=== PATIENT | female | born 1995 | race Caucasian/White ===

== ENCOUNTER 2016-12-11 00:35 | Outpatient (CLI) | payer MEDICAID, OTHER ==
[~2016-12-11] VITALS: Ht 160 cm; Wt 119.5 kg
[2016-12-11 01:24] VITALS: Ht 160 cm; Wt 119.5 kg
[2016-12-11 01:25] VITALS: BP 111/62; PULSE 79; RESP 18
[2016-12-11 01:51] LABS: ADD UMIC NO; UR ASCORBIC ACID 40 mg/dL (NEGATIVE); UR BACTERIA FEW /HPF (NONE SEEN); UR BILIRUBIN (Dip) NEGATIVE (NEGATIVE); UR BLOOD (Dip) NEGATIVE (NEGATIVE); UR CLARITY SLIGHTLY CLOUDY (CLEAR); UR COLOR YELLOW (YELLOW); UR GLUCOSE (Dip) 1+ mg/dL (NEGATIVE); UR KETONES (Dip) NEGATIVE (NEGATIVE); UR LEUKOCYTE ESTERASE (Dip) NEGATIVE Leu/ul (NEGATIVE); UR MUCUS MODERATE /HPF (NONE SEEN); UR NITRITE (Dip) NEGATIVE (NEGATIVE); UR RBC 2 /HPF (0-5); UR SPECIFIC GRAVITY (Dip) 1.029 (1.003-1.030); UR SQUAMOUS EPITHELIAL CELL FEW /HPF (FEW); UR TOTAL PROTEIN (Dip) NEGATIVE (NEGATIVE); UR UROBILINOGEN (Dip) NEGATIVE (NEGATIVE)
--- NOTE | 2016-12-11 01:54 | RADRPT ---
PROCEDURE: ULTRASOUND BIOPHYSICAL PROFILE CLINICAL INDICATION: 21-year-old female with decreased movement for viability . TECHNIQUE: Multiple sonographic images were obtained in order to perform a biophysical profile The images were reviewed on a PACS workstation. COMPARISON: None. FINDINGS: There is a single viable intrauterine gestation. There is a vertex presentation. Cardiac activity i s present at 134 beats per minute. The placenta is anterior. The results of the biophysical profile are as follows: breathing movement = 2/2 Gross body movement = 2/2 tone = 2/2 Qualitative amniotic fluid volume = 2/2 Amniotic fluid index equals 10.3 cm. This yields a biophysical profile score of 8/8. IMPRESSION: Biophysical profile score is 8/8. .Rashad Rahman MD, Date Time Electronically viewed and signed by .Rashad Rahman MD, on 12/11/2016 01:54 .M/
[2016-12-11] MEDS ORDERED: PRENAT PO (02:48)
--- NOTE | 2016-12-11 08:05 | PN ---
Triage Information Date/Time Weeks of Gestation 34w : 1 Para: 0 Diabetes: none Hypertention: none Additional information DFM Objective Vital Signs Date Time Temp Pulse Resp B/P Pulse Ox O2 Delivery O2 Flow Rate FiO2 12/11/16 01:25 97.9 79 18 111/62 Room Air Heart Rate: 130's Contractions: None Results/Medications Results 24 hrs Laboratory Tests Test 12/11/16 00:45 Urine Color YELLOW Urine Clarity SLIGHTLY CLOUDY A Urine pH 6.0 Urine Specific [place] 1.029 Urine Ketones NEGATIVE Urine Nitrite NEGATIVE Urine Bilirubin NEGATIVE Urine Urobilinogen NEGATIVE Urine Leukocyte Esterase NEGATIVE Urine Microscopic RBC 2 Urine Microscopic WBC 3 Urine Squamous Epithelial Cells FEW Urine Bacteria FEW A Urine Mucus MODERATE Urine Hemoglobin NEGATIVE Urine Glucose 1+ H Urine Total Protein NEGATIVE Imaging Results BPP 88 THONG 10.3 Assessment/Plan IUP 34w DFM plan dischrge home with routine labor instructions KRISTINA OLEA MD Dec 11, 2016 08:05
== END 2016-12-11 03:04 | disposition home or self-care (01) ==
LOC: L-D 00:35 → OBT 00:35
PROVIDERS: ATTEND Obstetrics & Gynecology
DX: O36.8130 Decreased fetal movements, third trimester, not applicable or unspecified (principal); Z3A.34 34 weeks gestation of pregnancy
CPT/HCPCS: 76818; 81001; 81003; Z7500; G0463

== ENCOUNTER 2017-01-07 21:11 | Inpatient (IN) | payer OTHER ==
[~2017-01-07] VITALS: Ht 160 cm; Wt 124.9 kg
[~2017-01-07 21:11] MED LIST: PRENAT PO
[2017-01-07 22:00] VITALS: BP 108/65; PULSE 56; RESP 18
[2017-01-07] MEDS ORDERED: ACET500C5 PO (22:02)
[2017-01-07 23:08] LABS: BASOPHILS % 0.2 % (0.0-2.0); EOSINOPHILS # 0.1 10^3/ul (0.0-0.5); EOSINOPHILS % 0.8 % (0.0-7.0); HEMATOCRIT 38.1 % (37.0-47.0); HEMOGLOBIN 12.9 g/dl (12.0-16.0); LYMPHOCYTES % 10.1 % (15.0-51.0); MEAN CORPUSCULAR HEMOGLOBIN 29.1 pg (29.0-33.0); MEAN CORPUSCULAR HGB CONC 33.9 g/dl (32.0-37.0); MEAN PLATELET VOLUME 11.6 fl (7.4-10.4); MONOCYTE # 0.5 10^3/ul (0.3-0.9); MONOCYTES % 5.5 % (0.0-11.0); PLATELET COUNT 175 10^3/UL (140-415); RED BLOOD COUNT 4.43 10^6/ul (4.20-5.40); RED CELL DISTRIBUTION WIDTH 13.7 % (11.5-14.5); WHITE BLOOD COUNT 9.8 10^3/ul (4.8-10.8)
--- NOTE | 2017-01-07 23:09 | RADRPT ---
PROCEDURE: US OB biophysical profile. CLINICAL INDICATION: decreased movements TECHNIQUE: Multiple sonographic images of the pelvis were obtained. The images were reviewed on a PACS workstation. COMPARISON: 12/11/16 FINDINGS: There is a single viable intrauterine gestation. Cardiac activity is present with 158 beats per min [place]. There is a vertex presentation. The placenta is anterior. There is no evidence of placental abruption. There is a normal amount of amniotic fluid with an THONG = 9.2 cm. Biophysical profile: movement 2/2 tone 2/2. breathing 2/2 THONG 2/2 Total 12/29 RPTAT: AA . IMPRESSION: Normal biophysical profile. . .Zack Gatica MD, MD Date Time Electronically viewed and signed by .Zack Gatica MD, MD on 01/07/2017 23:09 .S/
--- NOTE | 2017-01-07 23:13 | RADRPT ---
PROCEDURE: US Abdomen. CLINICAL INDICATION: abdominal pain TECHNIQUE: Multiple real-time images were acquired of the patient's right upper quadrant abdomen a nd retroperitoneum utilizing a high resolution transducer. COMPARISON: None FINDINGS: The liver demonstrates normal echogenicity. The liver is normal in size and no focal solid lesions are seen. The liver measures 14.2 cm in length. The portal vein is patent with normal direction of f low. No intrahepatic biliary dilatation is seen. Multiple calcified gallstones are identified within the gallbladder. There is no pericholecystic f luid or gallbladder wall thickening. The common bile duct measures 6 mm in maximal dimension. The pancreas was not seen. No free fluid is identified. The right kidney is normal in size, and demonstrate normal echogenicity and cortical thickness. The right kidney measures 11.5 cm in long dimension. There is no evidence of hydronephrosis. There are no kidney stones. RPTAT: AA IMPRESSION: Cholelithiasis. Mildly dilated CBD. .Zack Gatica MD, MD Date Time Electronically viewed and signed by .Zack Gatica MD, on 01/07/2017 23:12 .S/
[2017-01-07 23:17] LABS: ADD UMIC YES; UR ASCORBIC ACID NEGATIVE (NEGATIVE); UR BILIRUBIN (Dip) 1+ mg/dL (NEGATIVE); UR BLOOD (Dip) NEGATIVE (NEGATIVE); UR CLARITY SLIGHTLY CLOUDY (CLEAR); UR COLOR AMBER (YELLOW); UR GLUCOSE (Dip) NEGATIVE (NEGATIVE); UR KETONES (Dip) NEGATIVE (NEGATIVE); UR LEUKOCYTE ESTERASE (Dip) NEGATIVE Leu/ul (NEGATIVE); UR MUCUS FEW /HPF (NONE SEEN); UR NITRITE (Dip) NEGATIVE (NEGATIVE); UR RBC 0 /HPF (0-5); UR SPECIFIC GRAVITY (Dip) 1.026 (1.003-1.030); UR SQUAMOUS EPITHELIAL CELL MODERATE /HPF (FEW); UR TOTAL PROTEIN (Dip) 1+ mg/dl (NEGATIVE); UR UROBILINOGEN (Dip) 2+ mg/dL (NEGATIVE)
[2017-01-07 23:29] LABS: ALBUMIN 3.1 g/dl (3.3-4.9); ALBUMIN/GLOBULIN RATIO 1.1; BILIRUBIN,INDIRECT 0.3 mg/dl (0-1.1); BILIRUBIN,TOTAL 0.3 mg/dl (0.2-1.3); CREATININE 0.55 mg/dl (0.44-1.00); POTASSIUM 4.2 mmol/L (3.5-5.1); TOTAL PROTEIN 5.9 g/dl (6.1-8.1); URIC ACID 4.6 mg/dl (3.1-7.9)
[2017-01-08] MEDS ORDERED: ACETAMINOPHEN 325 MG TAB PO PRN (01:00)
[2017-01-08] MEDS ORDERED: AL HYDROX/MG HYDROX/SIMETH 30 ML CUP PO PRN (01:00)
[2017-01-08] MEDS ORDERED: morphine 2 MG INJ IV ONE (01:00)
[2017-01-08] MEDS: LACTATED RINGER'S 1,000 ML IV SCH ×2 (01:14→09:26)
[2017-01-08 01:27] LABS: INR 0.89; PT RATIO 0.9
[2017-01-08 01:28] LABS: PARTIAL THROMBOPLASTIN TIME 27.5 Sec (25.0-35.0)
--- NOTE | 2017-01-08 05:36 | HP ---
Date/Time of Note Date/Time of Note DATE: 01/08/17 TIME: 05:05 OB - History Hx of Present Free Text/Dictation 21 y.o primigravida at 38w came to triage with c/o ruq pain and x2 vomiting and small amount of diarrhea for iday denies any febrile episodes known to have gall stones. pain level 6/10 all lab result wnl EFM revealed no uterine activities, reactive strip THONG 9.2 BPP 8/8 u/s abdomen showa gall stones but no evidence of wall thickening, no dilatation of common duct. aadmitted for pain control and possilble induction in am Chief Complaint: RUQ pain and vomiting Estimated Due Date: Jan 22, 2017 : 1 Para: 0 Spontaneous : 0 Therapeutic : 0 Care: Good Care Ultrasounds: Normal mid trimester US Obstetrical Complications: None Medical Complications: Gastrointestinal Past Family/Social History * Past Medical, Surgical, Family and Obstetric Histories reviewed from chart. Blood Type: Unknown Rubella: unknown RPR/VDRL: Unknown GBS Status: Unknown OB Admission Exam Vital Signs Vital Signs Vital Signs Date Time Temp Pulse Resp B/P Pulse Ox O2 Delivery O2 Flow Rate FiO2 01/07/17 22:00 98.6 56 18 108/65 Room Air Physical Exam HEENT: WNL Heart: Rhythm Normal Lungs: Clear, Equal Abdomen: Abnormal (tenderness on epigastrium and increase tenderness with deep breathing on RUQ) Extremities: Normal Reflexes: Normal Cervical Dilatation: other Station: Other Amniotic Fluid: Other Heart Rate: 140's Accelerations: Accelerations Present Decelerations: No Decelerations Varibility: Moderate Contractions on Admission: None Last 72 hours Lab Results CBC & BMP 01/07/17 22:54 Liver Function Test 01/07/17 22:54 Alanine Aminotransferase (ALT/SGPT) 45 Albumin 3.1 L Alkaline Phosphatase 176 H Aspartate Amino Transf (AST/SGOT) 44 Direct Bilirubin 0.00 Total Protein 5.9 L OB Assessment/Plan Reason for admission: other Other Assessment: IUP 38w abdominal pain 2 to cholelithiasis Plan: Induction Other plan: pain control Morphine sulfate 4mg IV IV hydration KRISTINA OLEA MD Jan 08, 2017 05:24
[2017-01-08] MEDS ORDERED: PRENATAL VITAMIN PO SCH (09:00)
[2017-01-08 09:38] LABS: ADD UMIC YES; UR ASCORBIC ACID 40 mg/dL (NEGATIVE); UR BACTERIA FEW /HPF (NONE SEEN); UR BILIRUBIN (Dip) 1+ mg/dL (NEGATIVE); UR BLOOD (Dip) NEGATIVE (NEGATIVE); UR CLARITY SLIGHTLY CLOUDY (CLEAR); UR COLOR AMBER (YELLOW); UR GLUCOSE (Dip) NEGATIVE (NEGATIVE); UR KETONES (Dip) 1+ mg/dL (NEGATIVE); UR LEUKOCYTE ESTERASE (Dip) TRACE Leu/ul (NEGATIVE); UR MUCUS FEW /HPF (NONE SEEN); UR NITRITE (Dip) NEGATIVE (NEGATIVE); UR RBC 3 /HPF (0-5); UR SPECIFIC GRAVITY (Dip) 1.029 (1.003-1.030); UR SQUAMOUS EPITHELIAL CELL FEW /HPF (FEW); UR TOTAL PROTEIN (Dip) 1+ mg/dl (NEGATIVE); UR UROBILINOGEN (Dip) 2+ mg/dL (NEGATIVE)
[2017-01-08] MEDS ORDERED: ONDANSETRON 4 MG INJ IV PRN (10:00)
[2017-01-08] MEDS ORDERED: morphine 2 MG INJ IV PRN (10:00)
--- NOTE | 2017-01-08 13:36 | PN ---
Date/Time of Note Date/Time of Note DATE: 01/08/17 TIME: 13:32 OB Subjective Subjective Subjective Afebrile Vital signs are stable No more complaining of epigastric and right upper quadrant pain From the point of obstetrics biophysical profile 8 out of 8 THONG 9.1 heart category 1 had perinatology consult no obstetrical problem plan of a.m. discharge after consult with dietitian she will be followed at the clinic as outpatient OLIVA KAYE MD Jan 08, 2017 13:35
== END 2017-01-08 18:15 | disposition home or self-care (01) | DRG 781 ==
LOC: OBT 21:11 → L-D 21:12 → OBG 01-08 00:30 → OBT 01-08 00:30
PROVIDERS: ADMIT Obstetrics & Gynecology; ATTEND Obstetrics & Gynecology
DX: O99.613 Diseases of the digestive system complicating pregnancy, third trimester (principal); Z3A.38 38 weeks gestation of pregnancy
CPT/HCPCS: 76705; 76818; 80053; 80076; 81001; 82150; 83690; 84560; 85025; 85610; 85730; 86900; 86901; 87340; 96360; G0463; J2270; J2405; J7120

== ENCOUNTER 2017-01-09 15:34 | Outpatient (CLI) | payer OTHER ==
[~2017-01-09] VITALS: Ht 160 cm; Wt 124.9 kg
[~2017-01-09 15:34] MED LIST changes: +ACET500C5 PO
--- NOTE | 2017-01-09 15:58 | PN ---
Triage Information Date/Time Reason for visit: Cholelithiasis, complaining of right upper quadrant pain scale 1-10 4to5 Weeks of Gestation 38 weeks and 1day /Para Objective Heart Rate: 130's Heart Rate Comments heart rate category 1 Contractions: None Exam Pelvic exam deferred Disposition: Discharge Assessment/Plan Patient is undergoing an NST biophysical profile if result is satisfactory she will be discharged with a prescription of Tylenol3, recommended low-fat diet, follow-up at the clinic, in case of any other problems or other issues return to the hospital, OLIVA KAYE MD Jan 09, 2017 15:54
[2017-01-09 17:16] VITALS: Ht 160 cm; Wt 124.9 kg
[2017-01-09 17:17] VITALS: BP 120/76; PULSE 71; RESP 20
--- NOTE | 2017-01-09 17:28 | RADRPT ---
PROCEDURE: US OB biophysical profile. CLINICAL INDICATION: decreased movements, pain TECHNIQUE: Multiple sonographic images of the pelvis were obtained. The images were reviewed on a PACS workstation. COMPARISON: 01/07/2017 FINDINGS: There is a single viable intrauterine gestation. Cardiac activity is present with 165 beats per min gallo. There is a vertex presentation. The placenta is anterior. There is no evidence of placental abruption. There is a normal amount of amniotic fluid with an THONG = 10.0 cm. Biophysical profile: movement 2/2 tone 2/2. breathing 2/2 THONG 2/2 Total 12/29 RPTAT: AA . IMPRESSION: Normal biophysical profile. . .Zack Gatica MD, MD Date Time Electronically viewed and signed by .Zack Gatica MD, on 01/09/2017 17:27 .S/
--- NOTE | 2017-01-09 17:31 | RADRPT ---
PROCEDURE: US OB. CLINICAL INDICATION: Size and dates , pain TECHNIQUE: Multiple sonographic images of the pelvis and gravid uterus were obtained. The images were reviewed on a PACS workstation. COMPARISON: 01/07/2017 FINDINGS: There is a single viable intrauterine gestation. Cardiac activity is present with 138 beats per min [place]. There is a vertex presentation. The placenta is anterior. There is no evidence of placental abruption. There is a normal amount of amniotic fluid with an THONG = 10.0 cm. Measurements were made in order to determine age. The results are as follows: BPD =8.6 cm HC =33.4 cm AC =34.3 cm FL =7.4 cm Estimated gestational age of approximately 38 weeks and 1 day based on ultrasound measurements. Clinical age: 38 weeks and 1 day. The estimated date of delivery is 01/22/17, based on ultrasound measurements. The EFW = 3281 g, 51.5%, based on LMP age. RPTAT: AA IMPRESSION: Single viable intrauterine gestation of approximately 38 weeks and 1 day based on ultrasound measur ements. .Zack Gatica MD, MD Date Time Electronically viewed and signed by .Zack Gatica MD, MD on 01/09/2017 17:31 .S/
== END 2017-01-09 17:35 | disposition home or self-care (01) ==
LOC: OBT 15:34 → L-D 15:36 → OBT 17:35
PROVIDERS: ATTEND Obstetrics & Gynecology
DX: O99.613 Diseases of the digestive system complicating pregnancy, third trimester (principal); K80.20 Calculus of gallbladder without cholecystitis without obstruction; Z3A.38 38 weeks gestation of pregnancy
CPT/HCPCS: 76815; 76818; Z7500; G0463

== ENCOUNTER 2017-01-16 22:45 | Inpatient (IN) | payer OTHER ==
[~2017-01-16] VITALS: Ht 160 cm; Wt 125.8 kg
[2017-01-16 23:16] VITALS: BP 129/83; PULSE 71; RESP 18
[2017-01-16 23:17] VITALS: Ht 160 cm; Wt 125.8 kg
--- NOTE | 2017-01-17 00:09 | RADRPT ---
PROCEDURE: US biophysical profile. CLINICAL INDICATION: Decreased movement TECHNIQUE: Multiple sonographic images of the pelvis were obtained. The images were reviewed on a PACS workstation. COMPARISON: No prior studies are available for comparison. FINDINGS: There is a single viable intrauterine gestation, with heart rate measuring 144 beats per minut e. There is an anterior placenta, grade II to III. There is decreased amniotic fluid, with amniotic fluid index measured at 3.5 cm. Results of the biophysical profile are as follows breathing movement = 2/2 Gross body movement = 2/2 tone = 2/2 Quantitative amniotic fluid volume = 0/2. This yields a biophysical profile score of 6/8. IMPRESSION: Single viable intrauterine gestation, with biophysical profile of 6/8. Oligohydramnios, amniotic flu id index equals 3.5 cm RPTAT: HBST .Quoc King MD, Date Time Electronically viewed and signed by .Quoc King MD, on 01/17/2017 00:09 .T/
--- NOTE | 2017-01-17 00:20 | HP ---
Date/Time of Note Date/Time of Note DATE: 01/17/17 TIME: 00:13 OB - History Hx of Present Free Text/Dictation Patient is 1 para 0 at 39 weeks and 1 day gestation She is complaining of decreased movement THONG 3.5 Chief Complaint: Decreased movement Estimated Due Date: Jan 22, 2017 : 1 Para: 0 Care: Good Care Abnormal Ultrasound Findings: PROCEDURE: US biophysical profile. CLINICAL INDICATION: Decreased movement TECHNIQUE: Multiple sonographic images of the pelvis were obtained. The images were reviewed on a PACS workstation. COMPARISON: No prior studies are available for comparison. FINDINGS: There is a single viable intrauterine gestation, with heart rate measuring 144 beats per minute. There is an anterior placenta, grade II to III. There is decreased amniotic fluid, with amniotic fluid index measured at 3.5 cm. Results of the biophysical profile are as follows breathing movement = 2/2 Gross body movement = 2/2 tone = 2/2 Quantitative amniotic fluid volume = 0/2. This yields a biophysical profile score of 6/8. IMPRESSION: Single viable intrauterine gestation, with biophysical profile of 6/8. Oligohydramnios, amniotic fluid index equals 3.5 cm RPTAT: HBST .Quoc King MD, Date Time Electronically viewed and signed by .Quoc King MD, MD on 01/17/2017 00:09 .T/ CC: MERARY JOHNSON MD Past Family/Social History * Past Medical, Surgical, Family and Obstetric Histories reviewed from chart. OB Admission Exam Vital Signs Vital Signs Vital Signs Date Time Temp Pulse Resp B/P Pulse Ox O2 Delivery O2 Flow Rate FiO2 01/16/17 23:16 98.1 71 18 129/83 Room Air Physical Exam HEENT: WNL Heart Rate: 140's OB Assessment/Plan Other Assessment: 1 para 0 at 39 weeks and 1 day of gestation with low THONG 3.5 Plan: Induction Induction Method: per Misoprostol Protocol Other plan: Admit to labor and delivery for induction of labor PIH labs Pain meds as needed MERARY JOHNSON MD Jan 17, 2017 00:20
[2017-01-17] MEDS ORDERED: OXYTOCIN 30 UNITS/LR 500 ML IV SCH (00:30)
[2017-01-17] MEDS ORDERED: METHYLERGONOVINE 0.2 MG INJ IM PRN (00:30)
[2017-01-17] MEDS ORDERED: BUTORPHANOL 2 MG INJ IV PRN (00:30)
[2017-01-17] MEDS ORDERED: MISOPROSTOL 200 MCG TAB PR PRN (00:30)
[2017-01-17] MEDS ORDERED: LACTATED RINGER'S 1,000 ML IV PRN (00:30)
[2017-01-17] MEDS ORDERED: OXYTOCIN 30 UNITS/LR 500 ML IV PRN (00:30)
[2017-01-17] MEDS ORDERED: LIDOCAINE 1% (MPF) 30 ML INJ INJ PRN (00:30)
[2017-01-17] MEDS ORDERED: AMPICILLIN 2 GM/NS (PMX) 100 ML IV ONE (00:30)
[2017-01-17] MEDS ORDERED: CARBOPROST 250 MCG INJ IM PRN (00:30)
[2017-01-17] MEDS ORDERED: IBUPROFEN 600 MG TAB PO PRN (00:30)
[2017-01-17 02:05] LABS: ADD UMIC YES; UR ASCORBIC ACID 20 mg/dL (NEGATIVE); UR BACTERIA FEW /HPF (NONE SEEN); UR BILIRUBIN (Dip) NEGATIVE (NEGATIVE); UR BLOOD (Dip) NEGATIVE (NEGATIVE); UR CLARITY CLOUDY (CLEAR); UR COLOR AMBER (YELLOW); UR GLUCOSE (Dip) NEGATIVE (NEGATIVE); UR KETONES (Dip) NEGATIVE (NEGATIVE); UR LEUKOCYTE ESTERASE (Dip) 2+ Leu/ul (NEGATIVE); UR MUCUS FEW /HPF (NONE SEEN); UR NITRITE (Dip) NEGATIVE (NEGATIVE); UR RBC 2 /HPF (0-5); UR SPECIFIC GRAVITY (Dip) 1.026 (1.003-1.030); UR SQUAMOUS EPITHELIAL CELL MANY /HPF (FEW); UR TOTAL PROTEIN (Dip) 1+ mg/dl (NEGATIVE); UR UROBILINOGEN (Dip) 1+ mg/dL (NEGATIVE)
[2017-01-17] MEDS: LACTATED RINGER'S 1,000 ML IV SCH ×5 (02:40→23:05)
[2017-01-17 03:08] LABS: BASOPHILS % 0.3 % (0.0-2.0); EOSINOPHILS # 0.1 10^3/ul (0.0-0.5); EOSINOPHILS % 1.1 % (0.0-7.0); HEMOGLOBIN 13.1 g/dl (12.0-16.0); LYMPHOCYTES # 1.9 10^3/ul (0.8-2.9); MEAN CORPUSCULAR HGB CONC 33.6 g/dl (32.0-37.0); MEAN CORPUSCULAR VOLUME 86.5 fl (82.0-101.0); MONOCYTE # 0.7 10^3/ul (0.3-0.9); MONOCYTES % 6.5 % (0.0-11.0); NEUTROPHILS % 72.9 % (39.0-77.0); PLATELET COUNT 138 10^3/UL (140-415); RED BLOOD COUNT 4.51 10^6/ul (4.20-5.40); RED CELL DISTRIBUTION WIDTH 13.7 % (11.5-14.5); WHITE BLOOD COUNT 10.2 10^3/ul (4.8-10.8)
[2017-01-17 03:27] LABS: URIC ACID 4.2 mg/dl (3.1-7.9)
[2017-01-17 03:30] LABS: ALBUMIN 3.2 g/dl (3.3-4.9); ALBUMIN/GLOBULIN RATIO 1.06; BILIRUBIN,INDIRECT 0.1 mg/dl (0-1.1); BILIRUBIN,TOTAL 0.1 mg/dl (0.2-1.3); CALCIUM 8.9 mg/dl (8.4-10.2); CREATININE 0.59 mg/dl (0.44-1.00); POTASSIUM 4.2 mmol/L (3.5-5.1); TOTAL PROTEIN 6.2 g/dl (6.1-8.1)
[2017-01-17 03:41] LABS: INR 0.89; PARTIAL THROMBOPLASTIN TIME 28.1 Sec (25.0-35.0); PT RATIO 0.9
[2017-01-17] MEDS ORDERED: AMPICILLIN 1 GM/NS (PMX) 50 ML IV SCH (04:30)
[2017-01-17] MEDS ORDERED: ONDANSETRON 4 MG INJ IV PRN (06:30)
[2017-01-17] MEDS: MISOPROSTOL 25 MCG CAPSULE PO SCH ×5 (06:33→20:15)
--- NOTE | 2017-01-17 07:59 | TRIAGE ---
OB Triage Datetime Report Generated by CPN: 01/17/2017 07:58 Datetime: 01/17/2017 07:24 Assessment Type: Admission Assessment Vaginal Bleeding: None Maternal Assessment Level of Consciousness: Fully Conscious DTR's/Clonus: DTRs 2+; No Clonus Headache: Denies Blurred Vision: No Respiratory Effort: Unlabored; Regular Rhythm; Equal Expansion Breath Sounds, Left: Clear and Equal Breath Sounds, Right: Clear and Equal Nausea/Vomiting: Denies RUQ Epigastric Pain: Denies Lower Extremities Edema: None Degree: None Upper Extremities Edema: None Degree: None Facial Edema: None Fall Risk Assessment History of Falling: (0) No Secondary Diagnosis: (0) No Ambulatory Aid: (0) Bedrest/Nurse Assist IV Therapy: (0) No Gait: (0) Normal/Bedrest/Immobile Mental Status: (0) Oriented to Own Ability Fall Score: 0 Fall Risk Score Definition: No Risk: No action required Labor Evaluation Frequency: NONE Duration (sec)2399: Resting Tone [place]: Relaxed Contraction Comments: PT DENIES FEELING UC'S AT THIS TIME Heart Rate FHR Baseline Rate: 120 Variability: Moderate 6-25 bpm Accelerations: 15X15 Decelerations: None Category: Category I Pain Assessment Pain Scale: 0 Pain Presence: None/Denies Pain Type: N/A Pain Goal: 3 Pain Assessment Comments: Membrane Status: Intact Datetime: 01/17/2017 06:35 Stage of : Labor Labor Evaluation Frequency: irregular Monitor Mode: External Quality: Mild Pattern: Normal: <= 5 Contractions in 10 Minutes Resting Tone [place]: Relaxed Heart Rate FHR Baseline Rate: 145 FHR Baseline Changes: No Baseline Change Variability: Moderate 6-25 bpm Accelerations: 15X15 Decelerations: None Category: Category I Pain Presence: Intermittent Pain Type: Cramping Pain Location: Abdomen; Back Pain Goal: 2 Pain Relief Measures: Pain Medication Given; Epidural Given; [employer] Use; Comfort Measures Datetime: 01/17/2017 05:30 Labor Evaluation Frequency: IRREG Monitor Mode: External Quality: Mild Pattern: Normal: <= 5 Contractions in 10 Minutes Resting Tone [place]: Relaxed Heart Rate FHR Baseline Rate: 125 Monitor Mode: External US Variability: Moderate 6-25 bpm Accelerations: 15X15 Decelerations: None Category: Category I Datetime: 01/17/2017 05:00 Labor Evaluation Frequency: IRREG Monitor Mode: External Quality: Mild Pattern: Normal: <= 5 Contractions in 10 Minutes Resting Tone [place]: Relaxed Heart Rate FHR Baseline Rate: 125 Monitor Mode: External US Variability: Moderate 6-25 bpm Accelerations: 15X15 Decelerations: None Category: Category I Datetime: 01/17/2017 04:30 Labor Evaluation Frequency: OCCASIONAL Monitor Mode: External Duration (sec)2399: 60-120 Quality: Mild Pattern: Normal: <= 5 Contractions in 10 Minutes Resting Tone [place]: Relaxed Heart Rate FHR Baseline Rate: 120 Monitor Mode: External US FHR Baseline Changes: No Baseline Change Variability: Moderate 6-25 bpm Accelerations: 15X15 Decelerations: None Category: Category I Comments: PERIODS OF LOSS OF FHT DUE TO PT POSITION Datetime: 01/17/2017 03:50 Comments: US PICKING UP MATERNAL HR Datetime: 01/17/2017 03:30 Labor Evaluation Frequency: OCCASIONAL Monitor Mode: External Duration (sec)2399: 80-120 Quality: Mild Pattern: Normal: <= 5 Contractions in 10 Minutes Resting Tone [place]: Relaxed Heart Rate FHR Baseline Rate: 120 Monitor Mode: External US FHR Baseline Changes: No Baseline Change Variability: Moderate 6-25 bpm Accelerations: 15X15 Decelerations: None Category: Category I Datetime: 01/17/2017 03:20 Vaginal Exam Dilatation (cms): 1.5 Effacement (%): 40 Station: -3 Exam By: [facility] Datetime: 01/17/2017 02:30 Assessment Type: Admission Assessment Vaginal Bleeding: None Maternal Assessment Level of Consciousness: Fully Conscious DTR's/Clonus: DTRs 2+; No Clonus Headache: Denies Blurred Vision: No Respiratory Effort: Unlabored; Regular Rhythm; Equal Expansion Breath Sounds, Left: Clear and Equal Breath Sounds, Right: Clear and Equal Nausea/Vomiting: Denies RUQ Epigastric Pain: Denies Lower Extremities Edema: Bilateral Lower Extremities Degree: 1+ Upper Extremities Edema: None Degree: None Facial Edema: None Fall Risk Assessment History of Falling: (0) No Secondary Diagnosis: (0) No Ambulatory Aid: (0) Bedrest/Nurse Assist IV Therapy: (0) No Gait: (0) Normal/Bedrest/Immobile Mental Status: (0) Oriented to Own Ability Fall Score: 0 Fall Risk Score Definition: No Risk: No action required Labor Evaluation Frequency: OCCASIONAL Duration (sec)2399: 60-180 Quality: Mild Pattern: Normal: <= 5 Contractions in 10 Minutes Resting Tone [place]: Relaxed Heart Rate FHR Baseline Rate: 120 Variability: Moderate 6-25 bpm Accelerations: 15X15 Decelerations: None Category: Category I Pain Assessment Pain Scale: 0 Pain Presence: None/Denies Pain Type: N/A Membrane Status: Intact Datetime: 01/17/2017 01:30 Stage of : Labor Time of Arrival: 01/17/2017 01:30 EGA: 39.2 Arrived By: Ambulatory Arrived From: TRIAGE Datetime: 01/17/2017 01:24 Stage of : OB Triage Labor Evaluation Frequency: None noted or palpated. Pt denies any pain or uc's. Monitor Mode: External Resting Tone [place]: Relaxed Heart Rate FHR Baseline Rate: 130 Monitor Mode: External US FHR Baseline Changes: No Baseline Change Variability: Moderate 6-25 bpm Accelerations: 15X15 Decelerations: None Category: Category I Datetime: 01/17/2017 00:30 Stage of : OB Triage Labor Evaluation Frequency: None noted or palpated. Pt denies any pain or uc's. Monitor Mode: External Resting Tone [place]: Relaxed Heart Rate FHR Baseline Rate: 130 Monitor Mode: External US FHR Baseline Changes: No Baseline Change Variability: Moderate 6-25 bpm Accelerations: 15X15 Decelerations: None Category: Category I Datetime: 01/16/2017 23:30 Stage of : OB Triage Labor Evaluation Frequency: x3 Monitor Mode: External Duration (sec)2399: 50-80 Quality: Mild Pattern: Normal: <= 5 Contractions in 10 Minutes Resting Tone [place]: Relaxed Heart Rate FHR Baseline Rate: 130 Monitor Mode: External US Variability: Moderate 6-25 bpm Accelerations: 15X15 Decelerations: None Category: Category I Datetime: 01/16/2017 23:20 Stage of : OB Triage Datetime: 01/16/2017 23:02 Stage of : OB Triage Assessment Type: Triage Maternal Assessment Level of Consciousness: Fully Conscious DTR's/Clonus: DTRs 2+; No Clonus Headache: Denies Blurred Vision: No Respiratory Effort: Unlabored; Regular Rhythm; Equal Expansion Breath Sounds, Left: Clear and Equal Breath Sounds, Right: Clear and Equal Nausea/Vomiting: Denies RUQ Epigastric Pain: Denies Lower Extremities Edema: Bilateral Lower Extremities Degree: Pitting Upper Extremities Edema: None Degree: None Facial Edema: None Temperature Route: Oral Fall Risk Assessment History of Falling: (0) No Secondary Diagnosis: (0) No Ambulatory Aid: (0) Bedrest/Nurse Assist IV Therapy: (0) No Gait: (0) Normal/Bedrest/Immobile Mental Status: (0) Oriented to Own Ability Fall Score: 0 Fall Risk Score Definition: No Risk: No action required Pain Assessment Pain Scale: 0 Pain Presence: None/Denies Pain Type: N/A Datetime: 01/16/2017 22:59 Stage of : OB Triage Monitor Mode: External Contraction Comments: [place] applied Heart Rate FHR Baseline Rate: 140 Monitor Mode: External US Comments: EFM applied Datetime: 01/16/2017 22:58 Time of Arrival: 01/16/2017 22:45 EGA: 39.1 Arrived By: Ambulatory Arrived From: Home Chief Complaint: Decreased movement all day Movement: Absent Contractions: Denies/Absent Rupture of Membranes: Denies Vaginal Bleeding: None Vaginal Discharge: Denies Recent Sexual Intercouse: Yes Abdominal Trauma: Not Applicable Patient Complaints: Other Time Provider Notified: 01/16/2017 23:20 Provider Notified: Initial Plan: EFM x2 Datetime: 01/09/2017 15:56 Labor Evaluation Frequency: 0 Resting Tone [place]: Relaxed Contraction Comments: pt. denies Heart Rate FHR Baseline Rate: 130 Variability: Moderate 6-25 bpm Accelerations: 15X15 Decelerations: None Category: Category I Datetime: 01/09/2017 15:45 Assessment Type: Triage Maternal Assessment Level of Consciousness: Fully Conscious DTR's/Clonus: DTRs 2+; No Clonus Headache: Denies Blurred Vision: No Respiratory Effort: Unlabored; Regular Rhythm; Equal Expansion Breath Sounds, Left: Clear and Equal Breath Sounds, Right: Clear and Equal Nausea/Vomiting: Denies RUQ Epigastric Pain: Denies Lower Extremities Edema: None Degree: None Upper Extremities Edema: None Facial Edema: None Fall Risk Assessment History of Falling: (0) No Secondary Diagnosis: (0) No Ambulatory Aid: (0) Bedrest/Nurse Assist IV Therapy: (0) No Gait: (0) Normal/Bedrest/Immobile Mental Status: (0) Oriented to Own Ability Fall Score: 0 Fall Risk Score Definition: No Risk: No action required Datetime: 01/09/2017 15:42 Time of Arrival: 01/09/2017 15:35 EGA: 38.1 Chief Complaint: pt. here for recrrent gallbladder pain. no uc's, srom, or bleeding. pt. d/c'd fro m anteppartum nast p.m. and not able to induce pt. til 39 weeks. pt. not in labor and rn w/ pt. met [facility] discussed. nst/bpp and precsription for T#3 and d/c home. Movement: Present Contractions: Denies/Absent Rupture of Membranes: Denies Vaginal Bleeding: None Vaginal Discharge: Denies Recent Sexual Intercouse: Denies Abdominal Trauma: Not Applicable Patient Complaints: Other Datetime: 01/09/2017 15:39 Stage of : OB Triage Temperature Route: Oral Pain Assessment Pain Scale: 7 Pain Presence: Constant Pain Assessment Comments: tuq. known gallbladder pain Datetime: 01/08/2017 17:34 Labor Evaluation Frequency: 0 Monitor Mode: External Resting Tone [place]: Relaxed Heart Rate FHR Baseline Rate: 130 Monitor Mode: External US FHR Baseline Changes: No Baseline Change Variability: Moderate 6-25 bpm Accelerations: 15X15 Decelerations: None Category: Category I Datetime: 01/08/2017 17:04 Maternal Assessment Level of Consciousness: Fully Conscious DTR's/Clonus: DTRs 2+ Headache: Denies Blurred Vision: No Nausea/Vomiting: Denies RUQ Epigastric Pain: Denies Datetime: 01/08/2017 17:03 Pain Assessment Pain Scale: 4 Pain Presence: Constant Pain Type: Pressure; Ache Pain Location: Back Pain Goal: 0 Pain Assessment Comments: mid upper Datetime: 01/08/2017 15:11 Pain Assessment Pain Scale: 2 Pain Type: Ache Pain Location: Back Pain Assessment Comments: upper back, mid Datetime: 01/08/2017 14:13 Pain Assessment Pain Scale: 3 Pain Goal: 0 Datetime: 01/08/2017 10:02 Labor Evaluation Frequency: 0 Monitor Mode: External Resting Tone [place]: Relaxed Heart Rate FHR Baseline Rate: 130 Monitor Mode: External US FHR Baseline Changes: No Baseline Change Variability: Moderate 6-25 bpm Accelerations: 15X15 Decelerations: None Category: Category I Datetime: 01/08/2017 09:56 Accelerations: 15X15 Datetime: 01/08/2017 09:32 Nausea/Vomiting: Present Comments: begin monitoring Pain Assessment Pain Scale: 4 Pain Location: Back Pain Goal: 0 Pain Assessment Comments: will call dr for order Datetime: 01/08/2017 07:35 Assessment Type: Ongoing Assessment Maternal Assessment Level of Consciousness: Fully Conscious DTR's/Clonus: DTRs 2+; No Clonus Headache: Denies Blurred Vision: No Respiratory Effort: Unlabored; Regular Rhythm; Equal Expansion Breath Sounds, Left: Clear and Equal Breath Sounds, Right: Clear and Equal Nausea/Vomiting: Denies RUQ Epigastric Pain: Denies Facial Edema: None Fall Risk Assessment History of Falling: (0) No Secondary Diagnosis: (0) No Ambulatory Aid: (0) Bedrest/Nurse Assist IV Therapy: (20) Yes Gait: (0) Normal/Bedrest/Immobile Mental Status: (0) Oriented to Own Ability Fall Score: 20 Fall Risk Score Definition: No Risk: No action required Pain Assessment Pain Scale: 2 Pain Location: Back Pain Goal: 0 Datetime: 01/08/2017 07:15 Stage of : Antepartum Assessment Type: Ongoing Assessment Datetime: 01/08/2017 04:10 Stage of : Antepartum Assessment Type: Ongoing Assessment Datetime: 01/08/2017 02:13 Stage of : Antepartum Assessment Type: Ongoing Assessment Maternal Assessment Level of Consciousness: Fully Conscious DTR's/Clonus: DTRs 2+; No Clonus Headache: Denies Blurred Vision: No Respiratory Effort: Unlabored; Regular Rhythm; Equal Expansion Breath Sounds, Left: Clear and Equal Breath Sounds, Right: Clear and Equal Nausea/Vomiting: Denies RUQ Epigastric Pain: Denies Lower Extremities Edema: Bilateral Lower Extremities Degree: None Upper Extremities Edema: None Degree: None Facial Edema: None Temperature Route: Oral Fall Risk Assessment History of Falling: (0) No Secondary Diagnosis: (0) No Ambulatory Aid: (0) Bedrest/Nurse Assist Gait: (0) Normal/Bedrest/Immobile Mental Status: (0) Oriented to Own Ability Pain Presence: Intermittent Pain Type: Sharp; Ache Pain Location: Abdomen Pain Relief Measures: Pain Medication Given; Comfort Measures (Annotations: MORPHINE 2 MG IV GIVEN.) Datetime: 01/08/2017 02:00 Stage of : OB Triage Datetime: 01/08/2017 01:11 Comments: EFM off per order Datetime: 01/07/2017 21:30 EGA: 37.6 Datetime: 12/11/2016 01:15 Fall Score: 0 Fall Risk Score Definition: No Risk: No action required Datetime: 12/11/2016 01:13 EGA: 34.0
[2017-01-18] VITALS (12 sets, daily range): BP systolic 115–149; BP diastolic 58–85; PULSE 54–66; RESP 16–20
[2017-01-18] MEDS: MISOPROSTOL 25 MCG CAPSULE PO SCH (01:34)
[2017-01-18] MEDS ORDERED: ONDANSETRON 4 MG INJ IV PRN ×2 (03:30→09:30)
[2017-01-18] MEDS ORDERED: DIPHENHYDRAMINE 50 MG INJ IV PRN ×2 (03:30→09:30)
[2017-01-18] MEDS: LACTATED RINGER'S 1,000 ML IV SCH ×2 (03:30→22:28)
[2017-01-18] MEDS ORDERED: NALOXONE (0.4 MG/ML) INJ IV PRN ×2 (03:30→09:30)
[2017-01-18] MEDS ORDERED: FENTAnyl 2MCG/ML-ROPIV 0.2% 100 ML BAG EPI SCH (03:30)
[2017-01-18] MEDS ORDERED: CEFAZOLIN 2 GM/50 ML (PMX) 50 ML IVPB ONE (08:17)
[2017-01-18] MEDS ORDERED: CARBOPROST 250 MCG INJ IM PRN ×2 (08:30→12:30)
[2017-01-18] MEDS ORDERED: METHYLERGONOVINE 0.2 MG INJ IM PRN ×2 (08:30→12:30)
[2017-01-18] MEDS ORDERED: CEFAZOLIN 2 GM/50 ML (PMX) 50 ML IV SCH (08:30)
[2017-01-18] MEDS ORDERED: MISOPROSTOL 200 MCG TAB PR PRN ×2 (08:30→12:30)
[2017-01-18] MEDS ORDERED: OXYTOCIN 30 UNITS/LR 500 ML IV PRN ×2 (08:30→12:30)
[2017-01-18] MEDS ORDERED: LIDOCAINE 2%/EPI 30 ML INJ ONE (08:37)
[2017-01-18] MEDS ORDERED: DEXAMETHASONE 4 MG/ML 1 ML INJ ONE (08:37)
[2017-01-18] MEDS ORDERED: NA BICARBONATE 8.4% 50 ML SYG ONE (08:37)
[2017-01-18] MEDS ORDERED: morphine SULFATE/PF (10 MG/10 ML) INJ ONE (09:12)
[2017-01-18] MEDS ORDERED: NALBUPHINE HCL (10 MG/1 ML) INJ IV PRN (09:30)
[2017-01-18] MEDS ORDERED: HYDROmorphONE 1 MG/ML SYG IV PRN ×2 (09:30)
[2017-01-18] MEDS ORDERED: ZOLPIDEM 5 MG TAB PO PRN (09:30)
[2017-01-18] MEDS ORDERED: KETOROLAC 30 MG INJ IV PRN (09:30)
--- NOTE | 2017-01-18 09:32 | OPR ---
Operative Report Planned Procedure Free Text/Dictation 20 years old female admitted to [facility] for induction of labor at 39 weeks and 2 days due to decreased movement and low THONG 3.5 cc underwent induction of labor, her labor progressed well to completed cervical dilatation when suddenly he had a prolonged variable deceleration, pelvic examination performed cervix was completely vertex at -1 - 2 station with caput, patient is being prepared to undergo emergency section due to category 3 heart rate baby's condition explained to the mother and necessity of emergency section discussed consequences of alternative as well as the complication of the surgery entirely explained to her all her questions answered ,we will proceed with the operation Procedure date Jan 18, 2017 Procedure(s) Primary nonreassuring heart tracing Performed by: OLIVA KAYE MD Assisting provider: DUDLEY FRAZIER MD Anesthesiologist: VICENTA FLANAGAN DO Pre-procedure diagnosis Term category 3 heart tracing urgency section Anesthesia Type: spinal epidural Procedure Description Under satisfactory epidural [] anesthesia, the patient was prepped and draped and placed in a supine position, tilted to the left. Pfannenstiel incision was made, carried through the subcutaneous tissue. Bleeders brought under control with electrocautery. Fascia incised to the length of the incision. Rectus muscles from the fascia, divided midline. Peritoneum exposed, entered through a transverse incision. Exploration of abdomen revealed gravid uterus normal-appearing tubes and ovary. Bladder flap was developed. Transverse incision was made in the lower segment of the uterus. Amniotic sac ruptured. [ Tantamount of] amniotic fluid noted. Live baby girl delivered from occiput posterior with a large caput [] Nasal oropharyngeal suction was performed. The baby was handed to the team for immediate attention she received 20 units of Pitocin. placenta delivered manually intact. Uterine cavity was cleaned with wet sponge and drainage established. Uterus closed in 2 layers using Monocryl number] in continuous fashion. Peritoneal cavity irrigated with warm saline. Sponge, needle and instrument count reported to be correct. Abdominal peritoneum closed with [0 chromic catgut continuously. Rectus muscle approximated with [few interrupted 2-0 chromic catgut]. Fascia closed with [#1 PDS], cutaneous tissue approximated with 0 chromic catgut skin closed with N sorb. Estimated blood loss [100]mL. Urine bag contained [200]mL of clear urine patient tolerated procedure well and transferred to recovery room in good condition Post-Procedure Findings: Live Baby girl coronary 01/30 Specimen removed: No Complications: None Pt Condition post procedure: stable Physician Certification I, the undersigned physician, hereby certify that I have discussed the procedure described in this consent form with this patient (or the patient's legal business office representative), including: * The risk and benefits of the procedure; * Any adverse reactions that may reasonably be expected to occur; * Any alternative efficacious methods of treatment which may be medically viable ; * The potential problems that may occur during recuperation; * Potential for blood transfusion and associated risks/benefits; and * Any research or economic interest I may have regarding this treatment. I further certify that the patient/legally responsible person was encouraged to ask question and that all questions were answered. OLIVA KAYE MD Jan 18, 2017 09:21
[2017-01-18] MEDS: OXYTOCIN 30 UNITS/LR 500 ML IV SCH ×2 (09:45→11:38)
[2017-01-18] MEDS ORDERED: OXYTOCIN 30 UNITS/LR 500 ML IV SCH (12:19)
[2017-01-18] MEDS ORDERED: HYDROCODONE/APAP (5/325) TAB PO PRN ×2 (12:30)
[2017-01-18] MEDS ORDERED: OXYCODONE/ACETAMINOPHEN (5/325) TAB PO PRN (12:30)
[2017-01-18] MEDS ORDERED: CEFAZOLIN 1 GM/50 ML (PMX) 50 ML IVPB SCH (12:30)
[2017-01-18] MEDS ORDERED: LANOLIN 7 GM TUBE TOP PRN (12:30)
[2017-01-18] MEDS: SENNA/DOCUSATE NA (8.6MG/50MG) TAB PO SCH (21:00)
[2017-01-19] VITALS: BP 113/70; PULSE 68; RESP 20
[2017-01-19 04:15] VITALS: BP 100/65; PULSE 59; RESP 18
[2017-01-19] MEDS: LACTATED RINGER'S 1,000 ML IV SCH (05:57)
[2017-01-19 08:50] VITALS: BP 119/69; PULSE 63; RESP 15
[2017-01-19] MEDS: SENNA/DOCUSATE NA (8.6MG/50MG) TAB PO SCH ×2 (08:58→20:40)
[2017-01-19] MEDS: OXYCODONE/ACETAMINOPHEN (5/325) TAB PO PRN ×2 (08:59→20:40)
[2017-01-19 10:14] LABS: BASOPHILS % 0.3 % (0.0-2.0); EOSINOPHILS # 0.1 10^3/ul (0.0-0.5); EOSINOPHILS % 0.6 % (0.0-7.0); HEMOGLOBIN 10.9 g/dl (12.0-16.0); LYMPHOCYTES # 2.6 10^3/ul (0.8-2.9); LYMPHOCYTES % 26.7 % (15.0-51.0); MEAN CORPUSCULAR HEMOGLOBIN 28.6 pg (29.0-33.0); MEAN CORPUSCULAR VOLUME 86.6 fl (82.0-101.0); MEAN PLATELET VOLUME 12.8 fl (7.4-10.4); MONOCYTE # 0.6 10^3/ul (0.3-0.9); MONOCYTES % 6.1 % (0.0-11.0); NEUTROPHILS % 65.9 % (39.0-77.0); PLATELET COUNT 135 10^3/UL (140-415); RED BLOOD COUNT 3.81 10^6/ul (4.20-5.40); RED CELL DISTRIBUTION WIDTH 13.8 % (11.5-14.5); WHITE BLOOD COUNT 9.6 10^3/ul (4.8-10.8)
--- NOTE | 2017-01-19 10:20 | PN ---
Date/Time of Note Date/Time of Note DATE: 01/19/17 TIME: 10:19 OB Subjective Subjective Subjective Post day 1 Vital signs Afebrile Abdomen soft Bowel sounds present Lochia normal Extremity normal Ambulation encouraged OB Assessment/Plan Plan: Expectant Management OLIVA KAYE MD Jan 19, 2017 10:20
[2017-01-19] MEDS: IBUPROFEN 600 MG TAB PO SCH ×2 (11:17→17:39)
[2017-01-19 11:31] VITALS: BP 109/70; PULSE 71; RESP 16
[2017-01-19 15:00] VITALS: BP 115/63; PULSE 69; RESP 16
[2017-01-19 20:15] VITALS: BP 121/75; PULSE 77; RESP 18
[2017-01-20] MEDS: IBUPROFEN 600 MG TAB PO SCH ×4 (00:31→17:34)
[2017-01-20 04:48] VITALS: BP 104/59; PULSE 68; RESP 18
[2017-01-20] MEDS: OXYCODONE/ACETAMINOPHEN (5/325) TAB PO PRN ×2 (06:05→14:53)
[2017-01-20 08:30] VITALS: BP 119/74; PULSE 80; RESP 17
[2017-01-20] MEDS: SENNA/DOCUSATE NA (8.6MG/50MG) TAB PO SCH ×2 (08:37→21:53)
--- NOTE | 2017-01-20 09:55 | PN ---
Date/Time of Note Date/Time of Note DATE: 01/20/17 TIME: 09:53 OB Subjective Subjective Subjective Post day 2 Afebrile Vital signs are listed Abdomen soft good bowel sounds, had normal bowel movement Lochia moderate Extremities normal Ambulation encouraged Plan of a.m. discharge discussed OLIVA KAYE MD Jan 20, 2017 09:55
[2017-01-20 16:00] VITALS: BP 116/65; PULSE 67; RESP 18
[2017-01-20 19:42] VITALS: BP 99/64; PULSE 62; RESP 18
[2017-01-21] MEDS: IBUPROFEN 600 MG TAB PO SCH ×4 (00:28→17:59)
[2017-01-21 04:00] VITALS: BP 130/77; PULSE 60; RESP 19
[2017-01-21 08:00] VITALS: BP 128/72; PULSE 72; RESP 18
[2017-01-21] MEDS ORDERED: DIPHTH/TET/ACEL PERTUSS (ADULT) 0.5 ML VIAL IM* ONE (09:00)
[2017-01-21] MEDS: SENNA/DOCUSATE NA (8.6MG/50MG) TAB PO SCH ×2 (10:23→21:30)
--- NOTE | 2017-01-21 13:15 | PN ---
Date/Time of Note Date/Time of Note DATE: 01/21/17 TIME: 13:13 OB Subjective Subjective Subjective Post day 3 Afebrile Vital signs are stable Abdomen soft Incision healing well Good bowel sounds Had normal bowel movement Plan of a.m. discharge discussed with her OLIVA KAYE MD Jan 21, 2017 13:15
[2017-01-21 15:35] VITALS: BP 142/75; PULSE 63; RESP 18
[2017-01-21 15:50] VITALS: BP 150/83; PULSE 89; RESP 18
[2017-01-21 16:15] VITALS: BP 140/78; PULSE 62; RESP 18
[2017-01-21 20:00] VITALS: BP 141/76; PULSE 63; RESP 20
[2017-01-22 04:00] VITALS: BP 137/84; PULSE 62; RESP 18
[2017-01-22] MEDS: IBUPROFEN 600 MG TAB PO SCH ×3 (06:07→11:24)
[2017-01-22 09:00] VITALS: BP 134/82; PULSE 51; RESP 17
[2017-01-22] MEDS: SENNA/DOCUSATE NA (8.6MG/50MG) TAB PO SCH (09:17)
--- NOTE | 2017-01-22 12:21 | DS ---
Date/Time of Note Date/Time of Note DATE: 01/22/17 TIME: 12:15 Obstetrical Discharge Record Final Diagnosis Final Diagnosis: Term delivered Other Final Diagnosis January 22, 2017 This patient is a primigravida admitted at 39 weeks gestation. She underwent a primary section due to severe oligo hydramnios nonreassuring heart rate Postop she is doing well , the incision is healing Vaginal Delivery Other Delivery information Current Medications Medications (Trade) Dose Ordered Sig/Anjel Route PRN Reason Start Time Stop Time Status Last Admin Dose Admin Lactated Ringer's 1,000 ml @ 125 mls/hr Q8H IV 01/17/17 00:13 01/18/17 12:22 DC 01/18/17 03:30 Ampicillin 100 ml @ 100 mls/hr ONCE ONCE IV 01/17/17 00:30 01/17/17 03:39 DC Ampicillin (Ampicillin 1 Gm/ NS (Pmx)) 50 ml @ 100 mls/hr Q4H IV 01/17/17 04:30 01/17/17 04:30 DC Butorphanol Tartrate (Stadol) 2 mg Q2H PRN IV PAIN 01/17/17 00:30 01/18/17 12:22 DC Lidocaine 30 ml 30 ml ONCE PRN INJ EPISIOTOMY/TEARING 01/17/17 00:30 01/18/17 12:22 DC Oxytocin/Lactated Ringer's 500 ml @ 125 mls/hr ONCE -MAY REPEAT X1 IV 01/17/17 00:30 01/18/17 12:22 DC 01/18/17 11:38 Oxytocin/Lactated Ringer's 500 ml @ 125 mls/hr ONCE IV 01/17/17 00:30 01/19/17 14:12 DC Ibuprofen 600 mg 600 mg ONCE PRN PO Mild Pain (Pain Score 1-3) 01/17/17 00:30 01/18/17 12:22 DC Lactated Ringer's 1,000 ml @ 2,000 mls/hr Q30M PRN IV PRE-EPIDURAL BOLUS 01/17/17 00:30 01/19/17 14:12 DC Oxytocin/Lactated Ringer's 500 ml @ 0 mls/hr ONCE PRN IV For Hemorrhage Management 01/17/17 00:30 01/18/17 12:22 DC Methylergonovine Maleate (Methergine) 0.2 mg ONCE PRN IM VAGINAL BLEEDING 01/17/17 00:30 01/18/17 12:22 DC Carboprost Tromethamine (Hemabate) 250 mcg ONCE PRN IM VAGINAL BLEEDING 01/17/17 00:30 01/19/17 13:09 DC Misoprostol (Cytotec) 1,000 mcg ONCE PRN AL VAGINAL BLEEDING 01/17/17 00:30 01/18/17 12:22 DC Misoprostol (Cytotec 25 Mcg Capsule) 50 mcg Q4 PO 01/17/17 05:00 01/18/17 05:00 DC 01/18/17 01:34 Ondansetron HCl (Zofran Inj) 4 mg Q6H PRN IV NAUSEA AND/OR VOMITING 01/17/17 06:30 01/18/17 12:22 DC 01/17/17 06:40 Diphenhydramine HCl (Benadryl) 25 mg Q4H PRN IV PRURITUS 01/18/17 03:30 01/19/17 14:13 DC Ondansetron HCl (Zofran Inj) 4 mg Q6H PRN IV NAUSEA AND/OR VOMITING 01/18/17 03:30 01/18/17 12:22 DC Naloxone HCl (Narcan) 0.2 mg Q2M PRN IV FOR RESP RATE 8 OR LESS 01/18/17 03:30 01/18/17 12:22 DC Fentanyl/ Ropivacaine 100 ml 100 ml EPIDURAL (PCEA) EPI 01/18/17 03:30 01/18/17 12:22 DC Cefazolin Sodium/ Dextrose 50 ml @ ud STK-MED ONCE IVPB 01/18/17 08:17 01/18/17 08:18 DC Cefazolin Sodium/ Dextrose 50 ml @ 100 mls/hr ONCE IV 01/18/17 08:30 01/18/17 12:22 DC Oxytocin/Lactated Ringer's 500 ml @ 0 mls/hr ONCE PRN IV For Hemorrhage Management 01/18/17 08:30 01/18/17 12:22 DC Methylergonovine Maleate (Methergine) 0.2 mg ONCE PRN IM VAGINAL BLEEDING 01/18/17 08:30 01/18/17 12:22 DC Carboprost Tromethamine (Hemabate) 250 mcg ONCE PRN IM VAGINAL BLEEDING 01/18/17 08:30 01/18/17 12:22 DC Misoprostol (Cytotec) 1,000 mcg ONCE PRN AL VAGINAL BLEEDING 01/18/17 08:30 01/18/17 12:22 DC Sodium Bicarbonate (Na Bicarb 8.4% Syg) 50 ml STK-MED ONCE .ROUTE 01/18/17 08:37 01/18/17 08:38 DC Lidocaine/ Epinephrine (Xylocaine 2%/ Epi) 30 ml STK-MED ONCE .ROUTE 01/18/17 08:37 01/18/17 08:38 DC Dexamethasone (Decadron) 4 mg STK-MED ONCE .ROUTE 01/18/17 08:37 01/18/17 08:38 DC Naloxone HCl (Narcan) 0.1 mg Q2M PRN IV FOR RESP RATE 8 OR LESS 01/18/17 09:30 01/19/17 09:29 DC Ketorolac Tromethamine (Toradol) 30 mg Q6H PRN IV PAIN 01/18/17 09:30 01/19/17 09:29 DC 01/18/17 23:54 Hydromorphone HCl (Dilaudid) 0.2 mg Q3H PRN IV PAIN LEVEL 1-5 01/18/17 09:30 01/19/17 09:29 DC Hydromorphone HCl (Dilaudid) 0.4 mg Q3H PRN IV PAIN LEVEL 6-10 01/18/17 09:30 01/19/17 09:29 DC Diphenhydramine HCl (Benadryl) 25 mg Q6H PRN IV ITCHING 01/18/17 09:30 01/19/17 09:29 DC Nalbuphine HCl (Nubain) 5 mg ONCE PRN IV ITCHING 01/18/17 09:30 01/19/17 09:29 DC Ondansetron HCl (Zofran Inj) 4 mg Q6H PRN IV NAUSEA AND/OR VOMITING 01/18/17 09:30 01/19/17 09:29 DC 01/18/17 13:16 Zolpidem Tartrate (Ambien) 5 mg HS MAY REPEAT X 1 PRN PO INSOMNIA 01/18/17 09:30 01/19/17 09:29 DC Morphine Sulfate (Duramorph) 10 mg STK-MED ONCE .ROUTE 01/18/17 09:12 01/18/17 09:13 DC Acetaminophen/ Hydrocodone Bitart ([place] (5/325)) 1 tab Q4H PRN PO PAIN LEVEL 4-6 01/18/17 12:30 Acetaminophen/ Hydrocodone Bitart ([place] (5/325)) 2 tab Q4H PRN PO PAIN LEVEL 7-10 01/18/17 12:30 Oxycodone/ Acetaminophen (Percocet (5/ 325)) 1 tab Q4H PRN PO PAIN LEVEL 4-6 01/18/17 12:30 Oxycodone/ Acetaminophen (Percocet (5/ 325)) 2 tab Q4H PRN PO PAIN LEVEL 7-10 01/18/17 12:30 01/20/17 14:53 Ibuprofen (Motrin) 600 mg Q6 PO 01/19/17 12:00 01/22/17 11:24 Simethicone (Mylicon) 160 mg Q8H PRN PO DISTENSION/GAS/BLOATING 01/18/17 12:30 Senna/Docusate Sodium (Senokot-S) 1 tab BID PO 01/18/17 21:00 01/22/17 09:17 Lanolin (Eof-L-Zueouy) 1 applic BEDSIDE MEDICATION PRN TOP BEDSIDE FOR ROMAN TO NIPPLES 01/18/17 12:30 01/18/17 23:54 Diphtheria/ Tetanus/Acell Pertussis 0.5 ml 0.5 ml ONCE ONCE IM* 01/21/17 09:00 01/21/17 09:01 DC 01/21/17 10:24 Oxytocin/Lactated Ringer's 500 ml @ 0 mls/hr ONCE PRN IV For Hemorrhage Management 01/18/17 12:30 Methylergonovine Maleate (Methergine) 0.2 mg ONCE PRN IM VAGINAL BLEEDING 01/18/17 12:30 Carboprost Tromethamine (Hemabate) 250 mcg ONCE PRN IM VAGINAL BLEEDING 01/18/17 12:30 Misoprostol 1000 mcg 1,000 mcg ONCE PRN AL VAGINAL BLEEDING 01/18/17 12:30 Cefazolin Sodium 50 ml @ 100 mls/hr ONCE IVPB 01/18/17 12:30 01/18/17 12:59 DC 01/18/17 13:17 Oxytocin/Lactated Ringer's 500 ml @ 125 mls/hr Q4H IV 01/18/17 12:19 01/19/17 14:12 DC 01/18/17 16:19 Lactated Ringer's (Lr) 1,000 ml @ 125 mls/hr Q8H IV 01/18/17 22:30 01/19/17 12:59 DC 01/19/17 05:57 Post CS day 4 Patient is doing well, Ambulatory She is afebrile Abdomen is soft , Fundus is firm Moderate amount of lochia Breasts are soft, Nipples are intact No calf tenderness Breast feeding the new born. Section Section: Primary Complications Complications: less than 7 at 5 mins Complications Rupture of Membranes: No Condition on Discharge Physical Assessment Voiding: Yes Bowel Movement: Yes Breast: Soft, non-tender Fundus: Firm Abdomen and Incision: Healing well Calf Tenderness: No Patient Condition: Good AZIZA ARIAS MD Jan 22, 2017 12:20
== END 2017-01-22 16:55 | disposition home or self-care (01) | DRG 765 ==
LOC: OBT 22:45 → L-D 22:46 → OBT 01-17 00:15 → L-D 01-17 00:15 → PP1 01-18 12:13
PROVIDERS: ADMIT Obstetrics & Gynecology; ATTEND Obstetrics & Gynecology
PROC: 3E033VJ Introduction of Other Hormone into Peripheral Vein, Percutaneous Approach (ICD-10-PCS; 2017-01-18)
PROC: 10D00Z1 Extraction of Products of Conception, Low, Open Approach (ICD-10-PCS; principal; 2017-01-18 08:30)
DX: O36.8130 Decreased fetal movements, third trimester, not applicable or unspecified (principal); O41.03X0 Oligohydramnios, third trimester, not applicable or unspecified; O76 Abnormality in fetal heart rate and rhythm complicating labor and delivery; Z3A.39 39 weeks gestation of pregnancy; Z37.0 Single live birth
CPT/HCPCS: 76818; 80053; 81001; 84560; 85025; 85384; 85610; 85730; 86592; 86900; 86901; 87340; 90715; 94760; 99464; G0463; J0290; J0690; J1100; J1885; J2274; J2405; J2590; J3010; J7120